=== PATIENT | female | born 1960 | race Caucasian/White ===

== ENCOUNTER 2021-06-04 23:53 | Emergency (ER) | payer MEDICARE ==
[~2021-06-04] VITALS: Ht 160 cm; Wt 125.5 kg
[2021-06-05] MEDS ORDERED: PREDNISONE20 MG PO (01:20)
[2021-06-05] MEDS ORDERED: ATARAX50 MG PO (01:20)
[2021-06-05 01:39] VITALS: BP 134/75; PULSE 89; TEMP 98
== END 2021-06-05 01:39 | disposition home or self-care (01) ==
LOC: COL.ER 23:53
DX: T78.40XA Allergy, unspecified, initial encounter (principal); E11.9 Type 2 diabetes mellitus without complications; X58.XXXA Exposure to other specified factors, initial encounter
CPT/HCPCS: J2930